=== PATIENT | female | born 1990 | race Caucasian/White ===

== ENCOUNTER 2020-05-23 06:09 | Inpatient (IN) | payer BC ==
[2020-05-23] MEDS ORDERED: Acetaminophen 500 MG Tab PO ONE (06:30)
[2020-05-23] MEDS ORDERED: Gabapentin 300 MG Cap PO ONE (06:30)
[2020-05-23] MEDS ORDERED: Celecoxib 200 MG Cap PO ONE (06:30)
[2020-05-23] MEDS ORDERED: Scopolamine 1.5 MG Transdermal Patch TOP SCH (06:30)
[2020-05-23] MEDS ORDERED: cefOXitin 2 GM Vial ONE (06:48)
[2020-05-23] MEDS ORDERED: Succinylcholine 200 MG/10 ML MDV ONE (06:57)
[2020-05-23] MEDS ORDERED: Neostigmine Methylsulfate 1 MG/ML 5 ML Syringe ONE (06:57)
[2020-05-23] MEDS ORDERED: Rocuronium 50 MG/5 ML Vial ONE (06:57)
[2020-05-23] MEDS ORDERED: Dexamethasone 4 MG/ML SDV ONE (06:57)
[2020-05-23] MEDS ORDERED: Glycopyrrolate 0.2 MG/ML 5 ML MDV ONE (06:57)
[2020-05-23] MEDS ORDERED: Propofol 200 MG/20 ML SDV ONE (06:57)
[2020-05-23] MEDS ORDERED: Ondansetron 4 MG/2 ML SDV ONE (06:57)
[2020-05-23] MEDS ORDERED: fentaNYL 250 MCG/5 ML SDV ONE ×2 (06:58→08:36)
[2020-05-23] MEDS ORDERED: Dextrose 5%-Lactated Ringers 1,000 ML IV SCH (07:15)
[2020-05-23] MEDS ORDERED: SODIUM CHLORIDE 0.9% IV ONE (07:30)
[2020-05-23] MEDS ORDERED: MAGNESIUM SULFATE IV ONE (07:30)
[2020-05-23] MEDS ORDERED: Ketamine 50 MG in Sodium Chloride 0.9% 49.5 ML IV SCH (07:30)
[2020-05-23] MEDS ORDERED: Ketamine 500 MG/5 ML MDV IV SCH (07:30)
[2020-05-23] MEDS ORDERED: MAGNESIUM SULFATE IV SCH (07:30)
[2020-05-23] MEDS ORDERED: SODIUM CHLORIDE 0.9% IV SCH (07:30)
[2020-05-23] MEDS ORDERED: Lidocaine 1% 2 ML ONE (08:11)
[2020-05-23] MEDS: cefOXitin 2 GM in Sodium Chloride 0.9% 50 ML IV ONE ×2 (08:13→11:20)
[2020-05-23] MEDS ORDERED: hydrOXYzine HCL 100 MG/2 ML SDV IM ONE (10:17)
[2020-05-23] MEDS ORDERED: fentaNYL 100 MCG/2 ML SDV IVPUSH ONE (10:24)
[2020-05-23] MEDS ORDERED: Cyclobenzaprine 10 MG Tab PO PRN (11:10)
[2020-05-23] MEDS: Dextrose 5%-Lactated Ringers 1,000 ML IV SCH ×3 (11:18→21:36)
[2020-05-23] MEDS: HYDROmorphone 1 MG/ML Syringe IV PRN (11:25)
[2020-05-23] MEDS ORDERED: HYDROmorphone 0.5 MG/0.5 ML Syringe IVPUSH PRN (12:00)
[2020-05-23] MEDS ORDERED: Labetalol 20 MG/4 ML Syringe IVPUSH PRN (12:00)
[2020-05-23] MEDS ORDERED: Calcium Gluconate 10% 1 GM/10 ML SDV IVPUSH PRN (12:00)
[2020-05-23] MEDS ORDERED: Pantoprazole 40 MG Vial IVPUSH SCH (12:00)
[2020-05-23] MEDS ORDERED: Ondansetron 4 MG/2 ML SDV IVPUSH PRN (12:00)
[2020-05-23] MEDS ORDERED: diphenhydrAMINE 50 MG/ML SDV IVPUSH PRN (12:00)
[2020-05-23] MEDS ORDERED: hydrOXYzine HCL 100 MG/2 ML SDV IM PRN (12:00)
[2020-05-23] MEDS ORDERED: Metoclopramide 10 MG/2 ML SDV IVPUSH PRN (12:00)
[2020-05-23] MEDS ORDERED: Acetaminophen 500 MG Tab PO PRN (12:00)
[2020-05-23] MEDS ORDERED: Acetaminophen 500 MG Tab PO SCH (14:00)
[2020-05-23] MEDS ORDERED: Gabapentin 250 MG/5 ML Solution ML 470 ML Bottle PO SCH (14:00)
[2020-05-23] MEDS: cefOXitin 2 GM in Sodium Chloride 0.9% 50 ML IV SCH ×2 (15:21→19:31)
[2020-05-23] MEDS: MVI, Adult with Vitamin K 10 ML, Thiamine 200 MG, Chromium/Copper/Mang/Selen/Zn 1 ML in... IV SCH ×4 (15:29)
[2020-05-23] MEDS: Gabapentin 250 MG/5 ML Solution ML 470 ML Bottle PO SCH ×2 (15:33→21:34)
[2020-05-23] MEDS: Heparin Sodium 5,000 Units/ML Vial SUBCUT SCH (15:33)
[2020-05-23] MEDS: Acetaminophen 500 MG Tab PO SCH (15:36)
[2020-05-23] MEDS: Propranolol 40 MG Tab PO SCH (21:34)
[2020-05-23] MEDS: Topiramate 25 MG Tab PO SCH (21:35)
[2020-05-24] MEDS: Acetaminophen 500 MG Tab PO SCH ×3 (00:20→17:06)
[2020-05-24] MEDS: oxyCODONE 5 MG Tab PO PRN ×3 (00:27→20:55)
[2020-05-24] MEDS: cefOXitin 2 GM in Sodium Chloride 0.9% 50 ML IV SCH ×4 (02:08→20:55)
[2020-05-24] MEDS ORDERED: Iopamidol 612 MG/ML 50 ML SDV PO STA (02:35)
[2020-05-24] MEDS: Dextrose 5%-Lactated Ringers 1,000 ML IV SCH ×2 (03:54→12:21)
[2020-05-24] MEDS: Heparin Sodium 5,000 Units/ML Vial SUBCUT SCH ×2 (04:18→17:06)
[2020-05-24] MEDS: HYDROmorphone 1 MG/ML Syringe IV PRN (06:21)
[2020-05-24] MEDS ORDERED: Ondansetron 4 MG Tab.DIS PO PRN (07:33)
[2020-05-24] MEDS ORDERED: hydrOXYzine HCl 25 MG Tab PO PRN (07:35)
[2020-05-24] MEDS ORDERED: Rizatriptan 10 MG Tab.DIS PO PRN (07:45)
[2020-05-24] MEDS: Levothyroxine 50 MCG Tab PO SCH (07:52)
[2020-05-24] MEDS: Celecoxib 200 MG Cap PO SCH ×2 (08:41→20:56)
[2020-05-24] MEDS: Gabapentin 250 MG/5 ML Solution ML 470 ML Bottle PO SCH ×3 (08:41→20:55)
[2020-05-24] MEDS: Propranolol 40 MG Tab PO SCH ×2 (08:41→20:56)
[2020-05-24] MEDS: FLUoxetine 20 MG Cap PO SCH ×3 (08:42→20:57)
[2020-05-24] MEDS: SCOPOLAMINE PATCH CHECK TOP SCH (08:42)
[2020-05-24] MEDS: Topiramate 25 MG Tab PO SCH ×2 (08:42→20:57)
--- NOTE | 2020-05-24 09:09 | CR ---
UGI [facility] HISTORY: Postbariatric surgery FINDINGS: Patient swallowed water-soluble contrast. Upright views of the abdomen show no evidence of extravasation or obstruction. There is a surgical drain in the left upper quadrant IMPRESSION: Status post bariatric surgery No extravasation or obstruction seen
--- NOTE | 2020-05-24 11:18 | PN ---
DATE OF SERVICE: 05/24/2020 SUBJECTIVE: Aneta is postoperative day #1 following a Diogo-en-Y gastric bypass surgery. Upper GI was normal. She has been afebrile. Oral intake 540 and urine output 2100. GAEL drain put out 165 mL of a light pink drainage. Pain is controlled per energy protocol. OBJECTIVE: GENERAL: Aneta Sampson is a 29-year-old female, alert and orientated. VITAL SIGNS: TPR at 0747, 98.7; 71; 16; blood pressure 138/89. HEENT: Negative. NECK: Supple. HEART: Regular rate and rhythm. LUNGS: Clear. ABDOMEN: Dressings dry and intact. Abdominal binder is on. EXTREMITIES: Without peripheral edema. SCDs have been on. ASSESSMENT: Laparoscopic Diogo-en-Y gastric bypass surgery, liver biopsy, repair of diaphragmatic hernia, excision of mediastinal lipoma for morbid obesity, hepatomegaly, diaphragmatic hernia, and mediastinal lipoma. Date of surgery: 05/23/2020. Surgeon: Hermes Dickson MD. PLAN: 1. Dressing off, march shower. 2. Step 2 gastric bypass diet without cereal. 3. Decrease IV to 100 mL per hour. 4. Discontinue IV Dilaudid. 5. Atarax 25 mg p.o. q.4 hours p.r.n. pain. 6. Zofran ODT 4 mg every 4 hours p.r.n. nausea. 7. Prozac 20 mg p.o. t.i.d. 8. Maxalt as directed p.r.n. migraine headache 10 mg. 9. Communication order written for 3 med cups, 1 every 20 minutes or 3 per hour. Nursing staff has already started this. 10.Continue use of incentive spirometer. 11.We will evaluate p.r.n. or in a.m. Esther Garcia PA-C /[id number]
[2020-05-24] MEDS: Pantoprazole 40 MG Delayed-Release Granules 1 Packet PO SCH (11:49)
[2020-05-24] MEDS: MVI, Adult with Vitamin K 10 ML, Thiamine 200 MG, Chromium/Copper/Mang/Selen/Zn 1 ML in... IV SCH ×4 (17:08)
[2020-05-25] MEDS: Acetaminophen 500 MG Tab PO SCH ×2 (00:40→07:59)
[2020-05-25] MEDS: oxyCODONE 5 MG Tab PO PRN (02:56)
[2020-05-25] MEDS: Heparin Sodium 5,000 Units/ML Vial SUBCUT SCH (03:01)
[2020-05-25] MEDS: Dextrose 5%-Lactated Ringers 1,000 ML IV SCH (03:46)
[2020-05-25] MEDS: FLUoxetine 20 MG Cap PO SCH (07:59)
[2020-05-25] MEDS: Celecoxib 200 MG Cap PO SCH (07:59)
[2020-05-25] MEDS: Propranolol 40 MG Tab PO SCH (07:59)
[2020-05-25] MEDS: SCOPOLAMINE PATCH CHECK TOP SCH (08:00)
[2020-05-25] MEDS: Topiramate 25 MG Tab PO SCH (08:00)
[2020-05-25] MEDS: Levothyroxine 50 MCG Tab PO SCH (08:00)
[2020-05-25] MEDS: Gabapentin 250 MG/5 ML Solution ML 470 ML Bottle PO SCH (08:00)
[2020-05-25] MEDS ORDERED: Cyanocobalamin (Vitamin B12) 1,000 MCG/ML SDV IM ONE (09:00)
--- NOTE | 2020-05-25 09:44 | DISCH ---
DATE OF DISCHARGE: 05/25/2020 ADMISSION DIAGNOSES: 1. Morbid obesity, body mass index 54.9. 2. Gastroesophageal reflux disease. 3. Hypothyroidism. 4. Migraine headaches. 5. Obstructive sleep apnea. 6. History of polycystic ovary syndrome. 7. Hyperlipidemia. 8. Mild episode of recurrent major depression disorder. DISCHARGE DIAGNOSES: 1. Laparoscopic Diogo-en-Y gastric bypass surgery. 2. Liver biopsy. 3. Repair of diaphragmatic hernia. 4. Excision of mediastinal lipoma. POSTOPERATIVE DIAGNOSES: 1. Morbid obesity. 2. Hepatomegaly. 3. Diaphragmatic hernia. 4. Mediastinal lipoma. 5. Date of procedure: 05/23/2020. Surgeon: Hermes Dickson MD. HISTORY: Aneta Sampson is a 29-year-old female with longstanding history of morbid obesity and increasing comorbidities. After preoperative evaluation and discussion of possible risks and possible complications, she wishes to proceed with surgical procedure. HOSPITAL COURSE: Aneta had her surgery on 05/23/2020. She had no operative complications. On postoperative day #1, her upper GI was normal. She was started on a step 2 gastric bypass diet without cereal. IV was decreased and she received dietary instruction. On postoperative day #2, vital signs were stable, activity was good, pain was controlled, and she was able to be discharged to home. PHYSICAL EXAMINATION: GENERAL: Aneta Sampson is a pleasant 29-year-old female, alert, orientated. VITAL SIGNS: Height is 5 feet 8 inches, weight is 361 pounds 3.2 ounces, BMI is 54.9. TPR at 0258 is 97.2; 69; 18; blood pressure 141/73. HEENT: Negative. NECK: Supple. HEART: Regular rate and rhythm. LUNGS: Clear. ABDOMEN: Sutures intact. Trocar sites healing well. 4 x 4 over GAEL drain sites. Abdominal binder is on. EXTREMITIES: Without peripheral edema. DISPOSITION: Discharged to home. CONDITION: Stable and improving. FOLLOWUP: Appointment with Esther Garcia PA-C, at [facility] on 06/03/2020 at 11:45 a.m. HOME MEDICATIONS: 1. Celebrex 200 mg oral b.i.d. 2. Atarax 25 mg oral q.4 hours p.r.n. additional pain, #30. 3. Tylenol 1000 mg every 8 hours scheduled for pain. May taper p.r.n. 4. Zofran ODT 4 mg every 4 hours p.r.n. nausea, #30. 5. To resume home medications: a. Levothyroxine 50 mcg oral before breakfast. b. Fluoxetine 20 mg 3 times daily. c. Omeprazole 40 mg at bedtime. d. Propranolol 20 mg oral twice daily. e. Rizatriptan 10 mg oral as directed p.r.n. migraine headaches. f. Sumatriptan 100 mg oral as directed p.r.n. migraine headaches. g. Topiramate 25 mg oral twice daily. 6. She has a Kyleena IUD. DIET AFTER DISCHARGE: Step 2 gastric bypass diet with no cereal for 2 weeks until 06/07/2020. Drink 8 to 10 glasses of water a day. ACTIVITY: No lifting greater than 10 pounds for 2 weeks. Walk 6 times daily inside your home. Driving: Do not drive for 1 week. Shower/bathing: May shower. DISCHARGE INSTRUCTIONS: Notify provider if any fever, increased pain, nausea, or vomiting. Wound incision: Keep site clean and dry. Wear abdominal binder for 2 weeks and then as tolerated. SPECIAL INSTRUCTION: Use incentive spirometer 10 times every hour while awake for 1 week. [facility]
[2020-05-25] MEDS: Pantoprazole 40 MG Delayed-Release Granules 1 Packet PO SCH (12:22)
--- NOTE | 2020-05-30 11:40 | OR ---
DATE OF PROCEDURE: 05/23/2020 SURGEON: Hermes Dickson MD PREOPERATIVE DIAGNOSIS: Morbid obesity. POSTOPERATIVE DIAGNOSES: 1. Morbid obesity. 2. Marked hepatomegaly. 3. Paraesophageal diaphragmatic hernia. 4. Mediastinal lipoma. OPERATIVE PROCEDURE: Diagnostic laparoscopy with: 1. Laparoscopic Diogo-en-Y gastric bypass with long limb gastroenterostomy (16043). 2. Rene-Cut needle liver biopsy (00191). 3. Repair of paraesophageal diaphragmatic hernia (00923). 4. Excision of mediastinal lipoma (63088). ANESTHESIA: General. WORKDAY CONSULTANT: Esther Garcia PA-C INDICATIONS FOR PROCEDURE: A 29-year-old female presenting with longstanding morbid obesity and progressively worsening comorbidities. After preoperative evaluation and discussion, she wished to proceed with a gastric bypass procedure. Potential risks of the procedure including bleeding, infection, leaks from various GI tract closures, and problems with bowel obstruction over time as well as the possibility of cardiopulmonary, septic, or hemorrhagic complications leading to were all discussed, and the patient wishes to proceed. DETAILS OF PROCEDURE: The patient was taken to the operating room, and after general endotracheal anesthesia was induced, she was placed in a lithotomy position and the abdomen prepped and draped. At 15 cm inferior and 5 cm left of the xiphoid process, a transverse incision was made and the peritoneal cavity entered under direct vision with an Optiview trocar, inflated to 15 mmHg pressure with CO2. Laparoscope was then inserted. No underlying trocar insertion site injuries were seen. Following this, bilateral transversus abdominis plane blocks were placed and 5 additional trocars were placed across the upper and mid abdomen. The patient was noted to have marked hepatomegaly with liver volume being roughly 2 to 3 times normal, liver grossly fatty infiltrated. Rene-Cut needle biopsies were obtained from left lobe of the liver. Minimal bleeding from the biopsy site was controlled with electrocautery. The omentum was then divided in the midline up to the level of the transverse colon. This allowed identification of the small bowel to the ligament of Treitz. Small bowel was then traced out 150 cm distal to that point, it was divided transversely with a CHANDLER stapler. Small bowel was then traced out additional 150 cm where the [id number] enteroenterostomy was accomplished with an internal firing of the Endo-CHANDLER 60 mm stapler, common opening was then closed transversely with the same stapler and the angles of anastomosis and mesenteric defect approximated with some 0 Ethibond stitch along, with fibrin sealant. The divided end of the Diogo limb was then from the mesentery for a few centimeters, which allowed an antecolic position of the Diogo limb up to the level of the gastroesophageal junction without tension. The liver was then retracted anteriorly. The patient was noted to have a moderate paraesophageal diaphragmatic hernia with prolapse of perigastric fat and a tongue of omentum in a plane anterior to the course of the esophagus. This was reduced and peritoneum overlying it divided and reflected downward. During the course of the dissection, mediastinal lipoma was encountered, and this was dissected free to allow more adequate crural repair. The latter was accomplished anteriorly with 0 Ethibond sutures reinforced with PTFE pledgets. The gastrointestinal balloon catheter was inflated with 15 mL and pulled up snugly against the EG junction. Gastric wall over the apex balloon was then marked with electrocautery and balloon catheter deflated and withdrawn. The lesser omental tissue adjacent to the gastric cardia was then incised, allowing dissection of the stomach at that level. Pouch formation was initiated with transverse firing of the CHANDLER stapler at the level of the cauterized kristen at the gastric cardia, and using additional CHANDLER, pouch was completed with additional firings up toward the angle of His. Upon completion of the pouch, both staple lines were noted to be intact. The anvil of a 25 mm EEA stapler was then attached to Comanche sump type tube, the latter was brought down through the mouth and taken out through a small opening in the gastric pouch, allowing the anvil likewise to be pulled down to within the gastric pouch. Divided end of the Diogo limb was then opened. Main body of the EEA stapler was passed several centimeters into the lumen of small bowel, brought up the anvil, united with it, thus creating the gastrojejunostomy. Upon removal of the stapler, double donuts of mucosa were noted within it. The small bowel was closed off with a vascular staple line. Gastrojejunostomy was then reinforced with some 3-0 Vicryl seromuscular stitch along with fibrin sealant. Leak test was accomplished with injection of 120 mL of air into the gastric pouch while it was submerged with cefoxitin-containing saline solution. No leaks were identified. A single Domingo- Segura drain was then taken out through the left lateral trocar site and positioned adjacent to the gastrojejunostomy, from there up into the splenic fossa. Trocars were then sequentially removed and the peritoneal cavity deflated. Incision was closed with some 4-0 Vicryl skin stitch, which was also used to affix the drain. The patient was taken to the recovery room in satisfactory condition. There were no other complications. Physician bar assistant, Esther Garcia, played an essential role in assisting in this case, helping to position the patient, retract structures as needed, as well as suturing and cutting sutures when indicated. Her presence improved patient safety and decreased operative time. Hermes Dickson MD /[id number]
== END 2020-05-25 13:28 | disposition home or self-care (01) | DRG 403 ==
LOC: JP.SDS 06:09 → JP.SDSSCHI 06:09 → EDSTATUS 07:15 → JP.MS 10:40
PROVIDERS: ADMIT Surgery; ATTEND Surgery
PROC: 0D164ZA Bypass Stomach to Jejunum, Percutaneous Endoscopic Approach (ICD-10-PCS; principal; 2020-05-23)
PROC: 0FB24ZX Excision of Left Lobe Liver, Percutaneous Endoscopic Approach, Diagnostic (ICD-10-PCS; 2020-05-23)
PROC: 0BQT4ZZ Repair Diaphragm, Percutaneous Endoscopic Approach (ICD-10-PCS; 2020-05-23)
PROC: 0JB63ZZ Excision of Chest Subcutaneous Tissue and Fascia, Percutaneous Approach (ICD-10-PCS; 2020-05-23)
DX: E66.01 Morbid (severe) obesity due to excess calories (principal); Z68.43 Body mass index [BMI] 50.0-59.9, adult; R16.0 Hepatomegaly, not elsewhere classified; K44.9 Diaphragmatic hernia without obstruction or gangrene; F33.0 Major depressive disorder, recurrent, mild; E03.9 Hypothyroidism, unspecified; G43.909 Migraine, unspecified, not intractable, without status migrainosus; G47.33 Obstructive sleep apnea (adult) (pediatric); E78.5 Hyperlipidemia, unspecified; D17.1 Benign lipomatous neoplasm of skin and subcutaneous tissue of trunk; K21.9 Gastro-esophageal reflux disease without esophagitis; F41.1 Generalized anxiety disorder
CPT/HCPCS: 36415; 74240; 74240-26; 82962; 83735; 84100; 84443; 86850; 86900; 86901; 88304; 88307; 88313; 94762; A9270-GY; C9113; J0171; J0330; J0694; J1100; J1170; J1644; J2001; J2405; J2704; J2710; J2795; J3010; J3410; J3411; J3420; J3475; J3490; J7050; J7121; Q9967